=== PATIENT | male | born 1970 | race Asian ===

== ENCOUNTER → 2022-01-09 | Emergency (ER) | payer OTHER ==
[~2022-01-09] VITALS: Ht 172.7 cm; Wt 86.2 kg
[~2022-01-09] MED LIST: HYDROcodone/ACETAMIN 5-325 MG TAB (NORCO/ VICODIN) PO ONE; PROM25TA15 PO; TAMS-11 PO; TAMSULOSIN HCL 0.4 MG CAP PO SCH
--- NOTE | 2022-01-10 01:49 | NUR ---
pt c/o abdominal pain on LLQ 04/09 when he moves and 01/07 now took advil 2 tabs prior to ER visit, VS taken kept in waiting room
[2022-01-10 01:51] VITALS: BP_SYST 145
[2022-01-10 02:40] LABS: BASOPHILS # (AUTO) 0.1 K/uL (0.0-0.2); BASOPHILS % (AUTO) 0.7 % (0.0-2.0); EOSINOPHILS # (AUTO) 0.3 K/uL (0.0-0.4); EOSINOPHILS % (AUTO) 2.5 % (0.0-4.0); HEMATOCRIT 42.6 % (36-54); HEMOGLOBIN 14.6 g/dL (14.0-18.0); LYMPHOCYTES # (AUTO) 2.1 K/uL (1.0-5.5); LYMPHOCYTES % (AUTO) 20.9 % (20.5-51.5); MEAN CORPUSCULAR HEMOGLOBIN 29 pg (27-31); MEAN CORPUSCULAR HGB CONC 34 % (32-36); MEAN CORPUSCULAR VOLUME 85 fL (79.0-98.0); MONOCYTES # (AUTO) 0.7 K/uL (0.0-1.0); MONOCYTES % (AUTO) 7.3 % (1.7-9.3); NEUTROPHILS % (AUTO) 68.6 % (40.0-70.0); PLATELET COUNT (AUTO) 228 K/uL (130-430); RED CELL DISTRIBUTION WIDTH 13.6 % (9.0-15.0); WHITE BLOOD COUNT (AUTO) 10.3 K/uL (4.8-10.8)
[2022-01-10 02:41] LABS: BILIRUBIN,URINE NEGATIVE (NEGATIVE); BLOOD, URINE 3+ (NEGATIVE); CLARITY/URINE CLEAR (CLEAR); COLOR,URINE YELLOW (YELLOW); GLUCOSE,URINE NEGATIVE (NEGATIVE); KETONES,URINE NEGATIVE (NEGATIVE); LEUKOCYTE ESTERASE ,URINE NEGATIVE (NEGATIVE); NITRITE, URINE NEGATIVE (NEGATIVE); PROTEIN URINE NEGATIVE (NEGATIVE); UROBILINOGEN,URINE 0.2 (0.2-1.0)
--- NOTE | 2022-01-10 02:54 | NUR ---
Patient ambulatory to bed 4 for evaluation and treatment
[2022-01-10 02:58] LABS: CALCIUM 8.1 mg/dL (8.4-11.0); CREATININE 1.44 mg/dL (0.55-1.30); POTASSIUM 3.6 mmol/L (3.5-5.1)
[2022-01-10 03:03] LABS: ALBUMIN 3.3 g/dL (3.4-4.8); TOTAL BILIRUBIN 0.5 mg/dL (0.0-1.0)
[2022-01-10 03:27] LABS: BACTERIA,URINE None Seen /HPF (None Seen); MUCUS,URINE None Seen /LPF (None Seen); WBC,URINE 0-3 /HPF (0-3)
--- NOTE | 2022-01-10 04:14 | NUR ---
PT PRESENTED TO ER DRIVEN BY WITH COMPLAINT OF LLQ PAIN THAT RADIATES TO BACK. ISSUE STARTED ABOUT 2 DAYS AGO. NO ISSUE WITH URINATING. PT THOUGH HE WAS CONSTIPATED AND TOOK A SUP AND SOME LIQUID LAX HAS SINCE GONE. PT IS EXP PAIN 4/ VS ARE WITHIN NORMAL LIMITS. PT IN BED WITH BED LOWERED, LOCKED AND RAILS UP. AT BEDSIDE. WILL CONTINUE TO MONITOR
--- NOTE | 2022-01-10 04:50 | NUR ---
Patient given written and verbal discharge instructions and verbalizes understanding. ER DR ALICIA GANN discussed with patient the results and treatment provided. Patient in stable condition. ID arm band removed. Rx PHENERGAN, FLOMAX of given. Patient educated on pain management and to follow up with PMD. Pain Scale . Opportunity for questions provided and answered. Medication side effect fact sheet provided.
[2022-01-10 06:05] VITALS: BP_SYST 132
== END | disposition home or self-care (01) ==
LOC: SED 23:56
DX: N13.2 Hydronephrosis with renal and ureteral calculous obstruction (principal); R30.0 Dysuria
CPT/HCPCS: 36415; 76376; 80053; 81000; 85025; 99284

== ENCOUNTER 2022-04-23 13:24 | Emergency (ER) | payer OTHER ==
[~2022-04-23] VITALS: Ht 175.3 cm; Wt 81.6 kg
[~2022-04-23 13:24] MED LIST changes: -HYDROcodone/ACETAMIN 5-325 MG TAB (NORCO/ VICODIN) PO ONE; -TAMSULOSIN HCL 0.4 MG CAP PO SCH
[2022-04-23 13:52] VITALS: BP_SYST 128
--- NOTE | 2022-04-23 14:17 | NUR ---
Patient to ER bed H2 to gown for evaluation. Side rails up.
--- NOTE | 2022-04-23 14:24 | NUR ---
Pt coming from home ambulatory with steady gait accompanied by at bedside. Pt c/o RLQ pain that started abruptly this morning no trauma. Pt rates pain 10/10 non-radiating and is constant. Pt has no chest pain and no sob. Denies n/v. NKA. Has no known medical conditions. VSS. Kory in lowest position.
--- NOTE | 2022-04-23 14:28 | NUR ---
ER at bedside examining patient.
[2022-04-23] MEDS ORDERED: KETOROLAC TROMETHAMINE 30 MG VIAL IVP ONE (15:00)
[2022-04-23] MEDS ORDERED: NACL 0.9% 1,000 ML IV ONE (15:00)
--- NOTE | 2022-04-23 15:12 | NUR ---
Urine collected and sent to lab.
--- NOTE | 2022-04-23 15:24 | NUR ---
central supply technician at bedside.
[2022-04-23 15:38] LABS: BASOPHILS % (AUTO) 0.2 % (0.0-2.0); EOSINOPHILS % (AUTO) 0.3 % (0.0-4.0); HEMATOCRIT 44.5 % (36-54); LYMPHOCYTES % (AUTO) 7.2 % (20.5-51.5); MEAN CORPUSCULAR VOLUME 86 fL (79.0-98.0); MONOCYTES # (AUTO) 0.4 K/uL (0.0-1.0); MONOCYTES % (AUTO) 2.7 % (1.7-9.3); NEUTROPHILS # (AUTO) 12.5 K/uL (1.8-7.7); NEUTROPHILS % (AUTO) 89.6 % (40.0-70.0); PLATELET COUNT (AUTO) 255 K/uL (130-430); RED BLOOD CELL COUNT(AUTO) 5.15 MIL/uL (4.2-6.2); RED CELL DISTRIBUTION WIDTH 13.7 % (9.0-15.0)
[2022-04-23 15:50] LABS: CALCIUM 9.4 mg/dL (8.4-11.0); CREATININE 1.41 mg/dL (0.55-1.30); POTASSIUM 4.2 mmol/L (3.5-5.1)
[2022-04-23 15:56] LABS: ALBUMIN 3.9 g/dL (3.4-4.8); TOTAL BILIRUBIN 0.6 mg/dL (0.0-1.0)
[2022-04-23 16:47] LABS: BILIRUBIN,URINE NEGATIVE (NEGATIVE); BLOOD, URINE 3+ (NEGATIVE); COLOR,URINE YELLOW (YELLOW); GLUCOSE,URINE NEGATIVE (NEGATIVE); KETONES,URINE TRACE (NEGATIVE); LEUKOCYTE ESTERASE ,URINE NEGATIVE (NEGATIVE); NITRITE, URINE NEGATIVE (NEGATIVE); PROTEIN URINE NEGATIVE (NEGATIVE); UROBILINOGEN,URINE 0.2 (0.2-1.0)
--- NOTE | 2022-04-23 17:10 | NUR ---
Per Dr. Pineda's request, called on-call for [employer] Exchange will pg. GANN.
[2022-04-23 18:35] LABS: CLARITY/URINE SLIGHTLY HAZY (CLEAR)
[2022-04-23] MEDS ORDERED: CEPH-548 PO (19:06)
[2022-04-23] MEDS ORDERED: DOXA4TAB PO (19:06)
[2022-04-23] MEDS ORDERED: IBUP-1970 PO (19:06)
[2022-04-23] MEDS ORDERED: HYDR-3921 PO (19:07)
[2022-04-23 19:24] VITALS: BP_SYST 131
--- NOTE | 2022-04-23 19:26 | NUR ---
dPatient given written and verbal discharge instructions and verbalizes understanding. ER MD discussed with patient the results and treatment provided. Patient in stable condition. ID arm band removed. IV catheter removed intact and dressing applied, no active bleeding. Rx of [place], Motrin, Cephalexin given. Patient educated on pain management and to follow up with PMD. Pain Scale 0/10. Opportunity for questions provided and answered. Medication side effect fact sheet provided.
[2022-04-23 19:35] LABS: BACTERIA,URINE None Seen /HPF (None Seen); MUCUS,URINE None Seen /LPF (None Seen); RBC,URINE 80-100 /HPF (0-3); WBC,URINE 0-3 /HPF (0-3)
[2022-04-23 19:36] LABS: CALCIUM OXALATE CRYSTALS,UR 0-10 /HPF (None Seen)
== END 2022-04-23 19:26 | disposition home or self-care (01) ==
LOC: SED 13:24
DX: N20.1 Calculus of ureter (principal); N13.4 Hydroureter; Z79.899 Other long term (current) drug therapy
CPT/HCPCS: 99284; 74176; 96374; 96361; 80053; 81000; 83690; 85025; 36415; 76376; J1885; J7030

== ENCOUNTER 2023-03-26 10:01 | Emergency (ER) | payer BC, OTHER ==
[~2023-03-26] VITALS: Ht 170.2 cm; Wt 86.2 kg
[~2023-03-26 10:01] MED LIST changes: +CEPH-548 PO; +DOXA4TAB PO; +HYDR-3921 PO; +IBUP-1970 PO
[2023-03-26 10:20] VITALS: BP_SYST 128; PULSE 82; RESP 20; TEMP 97.8; O2SAT 96
[2023-03-26] MEDS ORDERED: LIDOCAINE 1% 10 MG/ML, 20 ML MDV INJ ONE (10:30)
[2023-03-26] MEDS ORDERED: BACITRACIN 1 GM OINT TP ONE ×2 (10:45→10:46)
== END 2023-03-26 10:57 | disposition home or self-care (01) ==
LOC: SED 10:01
DX: S61.210A Laceration without foreign body of right index finger without damage to nail, initial encounter (principal); Z79.899 Other long term (current) drug therapy; W26.8XXA Contact with other sharp object(s), not elsewhere classified, initial encounter; Y93.89 Activity, other specified; Y92.89 Other specified places as the place of occurrence of the external cause; Y99.8 Other external cause status
CPT/HCPCS: 99282; 12001; J2001